=== PATIENT | male | born 1965 | race African-American/Black ===

== ENCOUNTER 2023-05-19 06:00 | Inpatient (IN) | payer OTHER ==
[2023-05-18 13:24] VITALS: BMI 34.0
[2023-05-19] MEDS ORDERED: Thrombin 5000 UNITS/5 ML VIAL ONE ×2 (06:10→11:42)
[2023-05-19] MEDS ORDERED: EPINEPHrine 1 MG/ML AMP ONE ×2 (06:10→13:50)
[2023-05-19] MEDS ORDERED: Bupivacaine PF 0.5% 30 ML VIAL ONE ×2 (06:10→13:50)
[2023-05-19] MEDS ORDERED: Vancomycin 1 GM VIAL ONE (06:10)
[2023-05-19] MEDS ORDERED: Mag-Al 1200 mg/1200 mg/30 ML UDCUP PO PRN (06:37)
[2023-05-19] MEDS ORDERED: diphenhydrAMINE 50 MG/ML VIAL IVP PRN (06:37)
[2023-05-19] MEDS ORDERED: HYDROcodone/Acetaminophen 7.5/325 mg Tablet PO PRN (06:37)
[2023-05-19] MEDS ORDERED: Promethazine 25 MG TAB PO PRN (06:37)
[2023-05-19] MEDS ORDERED: Ondansetron PF 4 MG/2 ML Vial IVP PRN (06:37)
[2023-05-19] MEDS ORDERED: Milk Of Magnesia 30 ML UDCUP PO PRN (06:37)
[2023-05-19] MEDS ORDERED: Acetaminophen/Codeine 30-300mg Tablet PO PRN (06:37)
[2023-05-19] MEDS ORDERED: Morphine 2 MG/ML VIAL SLOW IVP PRN (06:37)
[2023-05-19] MEDS ORDERED: tiZANidine HCl 4 MG TAB PO PRN (06:40)
[2023-05-19] MEDS ORDERED: Midazolam HCl 2 mg/2 ml Vial ONE (06:42)
[2023-05-19] MEDS ORDERED: Sodium Chloride 0.9% 100 ML ONE ×2 (06:42→15:34)
[2023-05-19] MEDS ORDERED: CEFAZOLIN 2 GM VIAL ONE ×2 (06:42→15:33)
[2023-05-19 06:51] LABS: PTT 25.1 sec (22.9-36.1); Prothrombin Time 13.2 sec (12.0-14.7)
[2023-05-19] MEDS ORDERED: Fentanyl 250 MCG/5 ML VIAL ONE (07:04)
[2023-05-19] MEDS ORDERED: Ketamine 50 MG/ML (10ML VIAL) ONE (07:05)
[2023-05-19] MEDS ORDERED: Lidocaine 1% PF 5 ML VIAL ONE (07:16)
[2023-05-19] MEDS ORDERED: Dexamethasone 20 MG/5 ML VIAL ONE (07:16)
[2023-05-19] MEDS ORDERED: Metoclopramide HCl 10 MG/2 ML VIAL ONE (07:16)
[2023-05-19] MEDS ORDERED: Ketorolac Tromethamine 30 MG/ML VIAL ONE (07:16)
[2023-05-19] MEDS ORDERED: Vecuronium 10 MG VIAL ONE ×2 (07:16→10:30)
[2023-05-19] MEDS ORDERED: Rocuronium Bromide 10 MG/ML (10ML VIAL) ONE (07:16)
[2023-05-19] MEDS ORDERED: NEOSTIGMINE 3 MG/3 ML SYR 3 MG/3 ML SYRINGE ONE (07:16)
[2023-05-19] MEDS ORDERED: Ondansetron PF 4 MG/2 ML Vial ONE (07:16)
[2023-05-19] MEDS ORDERED: PROPOFOL 200 MG/20 ML VIAL ONE (07:16)
[2023-05-19] MEDS ORDERED: PHENYLEPHRINE-NS 100 MCG/ML 10 ML SYRINGE ONE (07:16)
[2023-05-19] MEDS ORDERED: Glycopyrrolate 0.2 MG/ML 5 ML SYRINGE ONE (07:16)
[2023-05-19 08:41] LABS: #Eosinphils 0.2 thou/uL (0.0-0.7); #Monocytes 0.6 thou/uL (0.11-0.59); #Neutrophils 3.2 thou/uL (1.40-6.50); %Basophils 0.5 % (0.0-1.0); %Lymphocytes 43.8 % (21.0-51.0); %Monocytes 8.4 % (0.0-10.0); Hematocrit 37.6 % (42.0-52.0); Hemoglobin 12.6 g/dL (14.0-18.0); Mean Corpuscular HGB CONC 33.5 g/dL (32.0-36.0); Mean Corpuscular Hemoglobin 30.1 pg (27.0-31.0); Mean Corpuscular Volume 89.7 fl (78.0-98.0); Mean Platelet Volume 9.2 fL (7.4-10.4); Platelet Count 223 10x3/uL (130-400); RBC Distribution Width 13.2 % (11.5-14.5); Red Blood Cell (RBC) Count 4.19 mill/uL (4.70-6.10); White Blood Cell (WBC) Count 7.4 10x3/uL (4.8-10.8)
[2023-05-19 09:04] LABS: Anion Gap 11 mmol/L (10-20); BUN (Urea Nitrogen) 11 mg/dL (8.4-25.7); Calc. Creatinine Clearance 170 mL/min (70-130); Calcium 8.8 mg/dL (7.8-10.44); Carbon Dioxide 25 mmol/L (22-29); Chloride 108 mmol/L (98-107); Estimated GFR 101; Glucose 101 mg/dL (70-105); Potassium 3.7 mmol/L (3.5-5.1); Sodium 140 mmol/L (136-145)
[2023-05-19 12:17] LABS: #Eosinphils 0.1 thou/uL (0.0-0.7); #Monocytes 0.3 thou/uL (0.11-0.59); #Neutrophils 6.3 thou/uL (1.40-6.50); %Basophils 0.3 % (0.0-1.0); %Eosinophils 0.9 % (0.0-10.0); %Lymphocytes 21.2 % (21.0-51.0); %Monocytes 3.3 % (0.0-10.0); Hematocrit 37.8 % (42.0-52.0); Hemoglobin 12.7 g/dL (14.0-18.0); Mean Corpuscular HGB CONC 33.6 g/dL (32.0-36.0); Mean Corpuscular Hemoglobin 30.1 pg (27.0-31.0); Mean Corpuscular Volume 89.6 fl (78.0-98.0); Mean Platelet Volume 10.2 fL (7.4-10.4); Platelet Count 206 10x3/uL (130-400); RBC Distribution Width 13.2 % (11.5-14.5); Red Blood Cell (RBC) Count 4.22 mill/uL (4.70-6.10); White Blood Cell (WBC) Count 8.6 10x3/uL (4.8-10.8)
[2023-05-19] MEDS ORDERED: SUGAMMADEX SODIUM 200 MG/2 ML VIAL ONE (14:08)
[2023-05-19] MEDS ORDERED: Meperidine HCl/PF 25 MG/ML VIAL SLOW IVP PRN (15:05)
[2023-05-19] MEDS ORDERED: Promethazine HCl 25 MG/ML VIAL IM PRN (15:05)
[2023-05-19] MEDS ORDERED: Ondansetron HCl/PF 4 MG/2 ML Vial IVP PRN (15:05)
[2023-05-19] MEDS: CEFAZOLIN 2 GM in Sodium Chloride 0.9% 100 ML IVPB SCH ×2 (15:35→22:01)
[2023-05-19] MEDS ORDERED: fentaNYL 50 mcg/mL 1 mL Vial ONE ×2 (15:37→15:56)
[2023-05-19] MEDS: HYDROcodone/Acetaminophen 10/325 mg Tablet PO PRN (20:39)
[2023-05-19] MEDS: Sodium Chloride 0.9% 1,000 ML IV SCH ×2 (20:41→21:02)
[2023-05-20] MEDS: HYDROcodone/Acetaminophen 10/325 mg Tablet PO PRN ×3 (03:40→17:26)
[2023-05-20 06:59] LABS: #Monocytes 1.5 thou/uL (0.11-0.59); %Basophils 0.2 % (0.0-1.0); %Eosinophils 0.1 % (0.0-10.0); %Lymphocytes 21.3 % (21.0-51.0); %Monocytes 10.3 % (0.0-10.0); %Neutrophils 67.8 % (42.0-75.0); Hematocrit 32.2 % (42.0-52.0); Hemoglobin 10.9 g/dL (14.0-18.0); Mean Corpuscular HGB CONC 33.9 g/dL (32.0-36.0); Mean Corpuscular Hemoglobin 29.9 pg (27.0-31.0); Mean Corpuscular Volume 88.2 fl (78.0-98.0); Mean Platelet Volume 9.4 fL (7.4-10.4); Platelet Count 226 10x3/uL (130-400); RBC Distribution Width 13.1 % (11.5-14.5); Red Blood Cell (RBC) Count 3.65 mill/uL (4.70-6.10); White Blood Cell (WBC) Count 14.8 10x3/uL (4.8-10.8)
[2023-05-20] MEDS: Sodium Chloride 0.9% 1,000 ML IV SCH ×2 (08:46→22:29)
[2023-05-20] MEDS ORDERED: Glucagon 1 MG/ML KIT IM PRN (09:50)
[2023-05-20] MEDS ORDERED: Dextrose 50% Abboject 50 ML SYRINGE SLOW IVP PRN (09:50)
[2023-05-20] MEDS ORDERED: Dextrose 5% in Water 1,000 ML IV PRN (09:50)
[2023-05-20] MEDS ORDERED: Melatonin 3 MG TAB PO PRN (10:05)
[2023-05-20] MEDS ORDERED: Metoprolol Tartrate 50 MG TAB PO PRN (10:28)
[2023-05-20] MEDS ORDERED: Gabapentin 300 MG CAP PO SCH (11:00)
[2023-05-20] MEDS: Atorvastatin Calcium 40 MG TAB PO SCH (20:27)
[2023-05-20] MEDS: Mirtazapine 15 MG TAB PO SCH (20:27)
[2023-05-20] MEDS: Gabapentin 300 MG CAP PO SCH (20:27)
[2023-05-20] MEDS: Prazosin HCl 1 MG CAP PO SCH (20:28)
[2023-05-20] MEDS: Insulin Glargine 30 UNITS/0.3 ML VIAL SC SCH (20:29)
[2023-05-20] MEDS ORDERED: Non-Formulary Item 1 EACH (Gabapentin [Gabapentin] 600 MG Tablet) PO SCH (21:00)
[2023-05-20] MEDS ORDERED: MIRTAZAPINE 45 MG PO SCH (21:00)
[2023-05-20] MEDS ORDERED: Non-Formulary Item 1 EACH (Atorvastatin Calcium [Lipitor] 80 MG Tablet) PO SCH (21:00)
[2023-05-21] MEDS: Acetaminophen 325 MG TAB PO PRN ×2 (01:22→17:21)
[2023-05-21] MEDS: HYDROcodone/Acetaminophen 10/325 mg Tablet PO PRN ×3 (01:29→21:46)
[2023-05-21 06:51] LABS: Bacteria/HPF None Seen HPF (None Seen); Bilirubin Negative (Negative); Blood, Urine Trace (Negative); CAUTI Indications for Culture Fever or rigors; Clarity Clear (Clear); Glucose, Urine (Dipstick) 150 mg/dL (Negative); Ketone, Urine Negative (Negative); Leukocyte Negative Leu/uL (Negative); Nitrite Negative (Negative); Protein, Urine (Dipstick) Negative (Neg-Trace); RBC/HPF 0-3 HPF (0-3); Specific Gravity, Urine 1.018 (1.002-1.036); Squamous Epithelial 0-3 HPF (0-3); Urobilinogen Normal mg/dL (Less than 2); pH, Urine 5.5 (5.0-9.0)
[2023-05-21 06:52] LABS: Urine Culture Reflex No No
[2023-05-21] MEDS ORDERED: Non-Formulary Item 1 EACH (Cholecalciferol (Vitamin D3) [Vitamin D3] 50 MCG Capsule) PO SCH (09:00)
[2023-05-21] MEDS ORDERED: Metoprolol Tartrate 100 MG TAB PO PRN (09:00)
[2023-05-21] MEDS ORDERED: Lidocaine 1% (PF) 30 ML VIAL ONE (09:20)
[2023-05-21] MEDS: Gabapentin 300 MG CAP PO SCH ×2 (10:43→21:45)
[2023-05-21] MEDS: CEFAZOLIN 2 GM in Sodium Chloride 0.9% 100 ML IVPB SCH ×2 (10:43→16:29)
[2023-05-21] MEDS: Cholecalciferol 1,000 UNITS (25 MCG) TAB PO SCH (10:44)
[2023-05-21] MEDS: Sodium Chloride 0.9% 1,000 ML IV SCH (13:23)
[2023-05-21 18:07] LABS: Bacteria/HPF None Seen HPF (None Seen); Bilirubin Negative (Negative); Blood, Urine Negative (Negative); CAUTI Indications for Culture Fever or rigors; Clarity Clear (Clear); Glucose, Urine (Dipstick) 200 mg/dL (Negative); Ketone, Urine Negative (Negative); Leukocyte Negative Leu/uL (Negative); Nitrite Negative (Negative); Protein, Urine (Dipstick) 10 mg/dL (Neg-Trace); RBC/HPF 0-3 HPF (0-3); Specific Gravity, Urine 1.019 (1.002-1.036); Squamous Epithelial 0-3 HPF (0-3); Urobilinogen Normal mg/dL (Less than 2); WBC/HPF 0-3 HPF (0-3)
[2023-05-21 18:20] LABS: Urine Culture Reflex No No
[2023-05-21 18:53] LABS: Lactic Acid 1.4 mmol/L (0.5-2.2)
[2023-05-21] MEDS ORDERED: Ibuprofen 600 MG TAB PO PRN (19:01)
[2023-05-21] MEDS: Mirtazapine 15 MG TAB PO SCH (21:14)
[2023-05-21] MEDS: Atorvastatin Calcium 40 MG TAB PO SCH (21:14)
[2023-05-21] MEDS: Prazosin HCl 1 MG CAP PO SCH (21:16)
[2023-05-21] MEDS: Insulin Glargine 30 UNITS/0.3 ML VIAL SC SCH (21:16)
[2023-05-21] MEDS: HumaLOG 300 UNITS/3 ML VIAL SC PRN (21:47)
[2023-05-22] MEDS: CEFAZOLIN 2 GM in Sodium Chloride 0.9% 100 ML IVPB SCH ×4 (01:44→23:26)
[2023-05-22] MEDS: Sodium Chloride 0.9% 1,000 ML IV SCH ×2 (01:44→17:07)
[2023-05-22] MEDS: HYDROcodone/Acetaminophen 10/325 mg Tablet PO PRN ×4 (01:59→20:30)
[2023-05-22] MEDS: HumaLOG 300 UNITS/3 ML VIAL SC PRN (07:23)
[2023-05-22] MEDS ORDERED: FLU VACC QS2023-24(6MOS UP)/PF 60 MCG/0.5 ML SYRINGE IM ONE (09:00)
[2023-05-22] MEDS: Cholecalciferol 1,000 UNITS (25 MCG) TAB PO SCH (09:28)
[2023-05-22] MEDS: Gabapentin 300 MG CAP PO SCH ×2 (09:28→20:30)
[2023-05-22 09:32] LABS: #Eosinphils 0.1 thou/uL (0.0-0.7); #Monocytes 1.3 thou/uL (0.11-0.59); #Neutrophils 7.6 thou/uL (1.40-6.50); %Basophils 0.3 % (0.0-1.0); %Eosinophils 1.3 % (0.0-10.0); %Monocytes 11.3 % (0.0-10.0); %Neutrophils 67.8 % (42.0-75.0); Hematocrit 30.3 % (42.0-52.0); Hemoglobin 10.1 g/dL (14.0-18.0); Mean Corpuscular HGB CONC 33.3 g/dL (32.0-36.0); Mean Corpuscular Volume 89.9 fl (78.0-98.0); Mean Platelet Volume 9.6 fL (7.4-10.4); Platelet Count 182 10x3/uL (130-400); RBC Distribution Width 12.9 % (11.5-14.5); Red Blood Cell (RBC) Count 3.37 mill/uL (4.70-6.10); White Blood Cell (WBC) Count 11.2 10x3/uL (4.8-10.8)
[2023-05-22 09:54] LABS: Anion Gap 12 mmol/L (10-20); BUN (Urea Nitrogen) 8 mg/dL (8.4-25.7); Calc. Creatinine Clearance 163 mL/min (70-130); Calcium 8.6 mg/dL (7.8-10.44); Carbon Dioxide 26 mmol/L (22-29); Chloride 101 mmol/L (98-107); Estimated GFR 99; Glucose 205 mg/dL (70-105); Potassium 3.6 mmol/L (3.5-5.1); Sodium 135 mmol/L (136-145)
[2023-05-22] MEDS ORDERED: Magnesium Citrate 300 ML BOT PO SCH (10:45)
[2023-05-22] MEDS: Atorvastatin Calcium 40 MG TAB PO SCH (20:31)
[2023-05-22] MEDS: Insulin Glargine 30 UNITS/0.3 ML VIAL SC SCH (20:31)
[2023-05-22] MEDS: Mirtazapine 15 MG TAB PO SCH (20:31)
[2023-05-22] MEDS: Prazosin HCl 1 MG CAP PO SCH (20:32)
[2023-05-23] MEDS: HYDROcodone/Acetaminophen 10/325 mg Tablet PO PRN ×5 (04:39→23:56)
[2023-05-23] MEDS: Sodium Chloride 0.9% 1,000 ML IV SCH ×2 (04:39→20:14)
[2023-05-23 05:31] LABS: #Eosinphils 0.2 thou/uL (0.0-0.7); #Monocytes 1.5 thou/uL (0.11-0.59); #Neutrophils 7.2 thou/uL (1.40-6.50); %Basophils 0.3 % (0.0-1.0); %Eosinophils 1.6 % (0.0-10.0); %Lymphocytes 22.8 % (21.0-51.0); %Monocytes 13.1 % (0.0-10.0); %Neutrophils 61.9 % (42.0-75.0); Hematocrit 29.6 % (42.0-52.0); Hemoglobin 9.8 g/dL (14.0-18.0); Mean Corpuscular HGB CONC 33.1 g/dL (32.0-36.0); Mean Corpuscular Hemoglobin 29.3 pg (27.0-31.0); Mean Corpuscular Volume 88.4 fl (78.0-98.0); Mean Platelet Volume 9.7 fL (7.4-10.4); Platelet Count 198 10x3/uL (130-400); RBC Distribution Width 12.5 % (11.5-14.5); Red Blood Cell (RBC) Count 3.35 mill/uL (4.70-6.10); White Blood Cell (WBC) Count 11.7 10x3/uL (4.8-10.8)
[2023-05-23 06:01] LABS: Anion Gap 11 mmol/L (10-20); BUN (Urea Nitrogen) 8 mg/dL (8.4-25.7); Calc. Creatinine Clearance 170 mL/min (70-130); Calcium 8.4 mg/dL (7.8-10.44); Carbon Dioxide 27 mmol/L (22-29); Chloride 101 mmol/L (98-107); Estimated GFR 101; Glucose 144 mg/dL (70-105); Potassium 3.7 mmol/L (3.5-5.1); Sodium 135 mmol/L (136-145)
[2023-05-23] MEDS: CEFAZOLIN 2 GM in Sodium Chloride 0.9% 100 ML IVPB SCH ×3 (08:30→23:50)
[2023-05-23] MEDS: Cholecalciferol 1,000 UNITS (25 MCG) TAB PO SCH (08:30)
[2023-05-23] MEDS: Gabapentin 300 MG CAP PO SCH ×2 (08:30→20:16)
[2023-05-23] MEDS ORDERED: Dexamethasone 4 mg/ml Vial SLOW IVP SCH (09:00)
[2023-05-23] MEDS: HumaLOG 300 UNITS/3 ML VIAL SC PRN (18:51)
[2023-05-23] MEDS: Atorvastatin Calcium 40 MG TAB PO SCH (20:17)
[2023-05-23] MEDS: Mirtazapine 15 MG TAB PO SCH (20:18)
[2023-05-23] MEDS: Prazosin HCl 1 MG CAP PO SCH (20:21)
[2023-05-23] MEDS ORDERED: Insulin Glargine 30 UNITS/0.3 ML VIAL SC SCH (21:00)
[2023-05-24] MEDS: HYDROcodone/Acetaminophen 10/325 mg Tablet PO PRN ×4 (05:17→20:54)
[2023-05-24] MEDS: Sodium Chloride 0.9% 1,000 ML IV SCH ×2 (05:18→21:01)
[2023-05-24 06:16] LABS: #Monocytes 1.6 thou/uL (0.11-0.59); #Neutrophils 10.3 thou/uL (1.40-6.50); %Basophils 0.1 % (0.0-1.0); %Eosinophils 0.1 % (0.0-10.0); %Lymphocytes 14.2 % (21.0-51.0); %Monocytes 11.3 % (0.0-10.0); %Neutrophils 73.9 % (42.0-75.0); Hematocrit 30.3 % (42.0-52.0); Hemoglobin 10.3 g/dL (14.0-18.0); Mean Corpuscular Hemoglobin 29.4 pg (27.0-31.0); Mean Corpuscular Volume 86.6 fl (78.0-98.0); Mean Platelet Volume 9.3 fL (7.4-10.4); Platelet Count 232 10x3/uL (130-400); RBC Distribution Width 12.2 % (11.5-14.5)
[2023-05-24 06:41] LABS: Anion Gap 13 mmol/L (10-20); BUN (Urea Nitrogen) 12 mg/dL (8.4-25.7); Calc. Creatinine Clearance 179 mL/min (70-130); Carbon Dioxide 24 mmol/L (22-29); Chloride 103 mmol/L (98-107); Estimated GFR 103; Glucose 179 mg/dL (70-105); Sodium 136 mmol/L (136-145)
[2023-05-24] MEDS: CEFAZOLIN 2 GM in Sodium Chloride 0.9% 100 ML IVPB SCH ×2 (08:18→16:29)
[2023-05-24] MEDS: Cholecalciferol 1,000 UNITS (25 MCG) TAB PO SCH (08:19)
[2023-05-24] MEDS: Gabapentin 300 MG CAP PO SCH ×2 (08:20→20:55)
[2023-05-24] MEDS: HumaLOG 300 UNITS/3 ML VIAL SC PRN (16:30)
[2023-05-24] MEDS: Mirtazapine 15 MG TAB PO SCH (20:55)
[2023-05-24] MEDS: Atorvastatin Calcium 40 MG TAB PO SCH (20:55)
[2023-05-24] MEDS ORDERED: Insulin Glargine 30 UNITS/0.3 ML VIAL SC SCH (21:00)
[2023-05-24] MEDS: Prazosin HCl 1 MG CAP PO SCH (21:01)
[2023-05-25] MEDS: CEFAZOLIN 2 GM in Sodium Chloride 0.9% 100 ML IVPB SCH ×3 (01:30→15:39)
[2023-05-25] MEDS: HYDROcodone/Acetaminophen 10/325 mg Tablet PO PRN (01:30)
[2023-05-25] MEDS: Sodium Chloride 0.9% 1,000 ML IV SCH (01:32)
[2023-05-25] MEDS: Gabapentin 300 MG CAP PO SCH (08:05)
[2023-05-25] MEDS: Cholecalciferol 1,000 UNITS (25 MCG) TAB PO SCH (08:06)
[2023-05-25 12:53] VITALS: BP 143/74; TEMP 98.7
== END 2023-05-25 18:21 | disposition home or self-care (01) | DRG 454 ==
LOC: SDC 06:00 → T4-A 18:52 → OBSVTOIN 05-20 15:54
PROVIDERS: ADMIT Neurological Surgery; ATTEND Neurological Surgery
PROC: 0SG30AJ Fusion of Lumbosacral Joint with Interbody Fusion Device, Posterior Approach, Anterior Column, Open Approach (ICD-10-PCS; principal; 2023-05-19)
PROC: 0SG3071 Fusion of Lumbosacral Joint with Autologous Tissue Substitute, Posterior Approach, Posterior Column, Open Approach (ICD-10-PCS; 2023-05-19)
PROC: 01NB0ZZ Release Lumbar Nerve, Open Approach (ICD-10-PCS; 2023-05-19)
PROC: 0SB20ZZ Excision of Lumbar Vertebral Disc, Open Approach (ICD-10-PCS; 2023-05-19)
PROC: 01NR0ZZ Release Sacral Nerve, Open Approach (ICD-10-PCS; 2023-05-19)
PROC: 06H03DZ Insertion of Intraluminal Device into Inferior Vena Cava, Percutaneous Approach (ICD-10-PCS; 2023-05-21)
DX: M48.062 Spinal stenosis, lumbar region with neurogenic claudication (principal); D62 Acute posthemorrhagic anemia; I82.531 Chronic embolism and thrombosis of right popliteal vein; E11.9 Type 2 diabetes mellitus without complications; G47.00 Insomnia, unspecified; G89.29 Other chronic pain; N40.0 Benign prostatic hyperplasia without lower urinary tract symptoms; I10 Essential (primary) hypertension; F32.A Depression, unspecified; Z83.3 Family history of diabetes mellitus; Z82.49 Family history of ischemic heart disease and other diseases of the circulatory system; Z87.891 Personal history of nicotine dependence; Z79.4 Long term (current) use of insulin; Z79.899 Other long term (current) drug therapy; M51.16 Intervertebral disc disorders with radiculopathy, lumbar region; M48.07 Spinal stenosis, lumbosacral region; M19.90 Unspecified osteoarthritis, unspecified site; G43.909 Migraine, unspecified, not intractable, without status migrainosus; E78.00 Pure hypercholesterolemia, unspecified; Z80.9 Family history of malignant neoplasm, unspecified; Z79.01 Long term (current) use of anticoagulants; Z79.84 Long term (current) use of oral hypoglycemic drugs; E66.9 Obesity, unspecified; R50.82 Postprocedural fever; Z68.34 Body mass index [BMI] 34.0-34.9, adult
CPT/HCPCS: 36415; 36416; 37191; 71045; 71046; 80048; 81001; 83605; 85025; 85610; 85730; 86140; 86850; 86900; 86901; 87040; 87086; 93005; 93010; 93970; A4314; C1713; C1769; C1880; C1889; C1894; J0171; J1100; J1815; J1885; J2001; J2250; J2405; J2704; J2765; J3010; J3370; J3490; J7050; S0020